=== PATIENT | female | born 1975 | race Caucasian/White ===

== ENCOUNTER → 2017-05-08 | Day surgery (SDC) | payer OTHER ==
[~2017-05-08] VITALS: Ht 165.1 cm; Wt 68.0 kg
[~2017-05-08] MED LIST: 0.9% Sodium Chloride 1,000 ML IV SCH; DICY10CA56 PO; IMI25 PO; METH500T7 PO; OMPR20CCR PO; RANI150C4 PO; Sodium Chloride LOK Flush 10 mL Syringe IV PRN; fentaNYL-PF 50 mCg/mL 2 mL Inj IVPUSH PRN
[2017-05-08 10:32] VITALS: BP 111/73; PULSE 82; RESP 16; O2SAT 98
[2017-05-08 11:42] VITALS: BP 96/70; PULSE 65; O2SAT 100
[2017-05-08 11:49] VITALS: BP 87/62; PULSE 54; RESP 14; O2SAT 100
--- NOTE | 2017-05-08 13:46 | ENDO ---
[address] [address] ENDOSCOPY PROCEDURE PATIENT: MILTON BECKHAM : 1975 MR#: [id number] ADMIT: 05/08/2017 JOB ID: [id number] DATE OF SERVICE: 05/08/2017 TYPE OF OPERATION: 1. Esophagogastroduodenoscopy with biopsy. 2. Colonoscopy with biopsy. PREOPERATIVE DIAGNOSIS(ES): 1. Gastroesophageal reflux disease. 2. Diarrhea. POSTOPERATIVE DIAGNOSIS(ES): 1. Mild nonerosive gastritis. 2. Normal colonoscopy, status post biopsy. ANESTHESIA: Fentanyl 50 mcg, Versed 4 mg IV administered. COMPLICATIONS: None. BLOOD LOSS: Minimal. DESCRIPTION OF PROCEDURE: After risks and benefits were explained to the patient, informed consent was obtained. After anesthesia administered, upper endoscope was then inserted into the mouth, intubating into the esophagus, stomach, second portion of duodenum. Mucosa carefully examined. After procedure was done, the scope withdrawn and procedure terminated. Colonoscope was then inserted from rectum to cecum and to the terminal ileum and mucosa carefully examined. Prep of the patient was excellent. After the procedure was done, the scope withdrawn and the procedure terminated. FINDINGS: Upon inspection of the esophagus, the esophagus was normal without masses, ulcers, or lesions seen. Z-line located at 40 cm from incisors. Upon entering the stomach, there was mild nonerosive gastritis that was seen. There were no masses, ulcers, or lesions that were seen. Retroflexion was normal. Duodenal bulb, first and second portion were normals. Biopsies taken of the duodenum, antrum, body and distal esophagus. Upon inspection of the anus, no masses, hemorrhoids, ulcers, or fissures that were seen. Throughout the entire examination, there were no polyps, masses, or lesions. Biopsies taken from the terminal ileum and random colon. Retroflexion was normal. IMPRESSION: 1. Normal colonoscopy, status post biopsy. 2. Mild nonerosive gastritis. RECOMMENDATION: Await pathology results. Follow up in GI clinic as needed.
--- NOTE | 2017-05-10 12:39 | PATH ---
SURGICAL PATHOLOGY Attending Physician:Maxx Thacker MD CASE STATUS: Signed Out PATIENT NAME: MILTON BECKHAM PID: [id number] : 1975 DATE COLLECTED:05/08/2017 19:55 SPECIMEN: 1: Duodenum, Biopsy 2: Stomach, Antrum, Biopsy 3: Gastric, Biopsy 4: Esophagus, Biopsy 5: Ileum, Biopsy 6: Colon, Biopsy CLINICAL HISTORY: 1). DUODENUM BIOPSY 2). ANTRUM BIOPSY 3). GASTRIC BODY BIOPSY, RULE OUT H.PYLORI 4). DISTAL ESOPHAGUS BIOPSY 5). TERMINAL ILEUM BIOPSY 6). RANDOM COLON BIOPSY FINAL DIAGNOSIS: 1. Duodenum, Biopsy: Duodenal mucosa with no diagnostic abnormality. Negative for active inflammation, features of sprue, dysplasia, and malignancy. 2. Gastric Antrum, Biopsy: Portions of gastric antral and body-type mucosa with mild chronic gastritis. No H. pylori organisms identified by H&E stain. Negative for intestinal metaplasia, dysplasia, and malignancy. 3. Gastric Body, Biopsy: Portions of gastric body-type mucosa with mild chronic gastritis. No H. pylori organisms identified by H&E stain or immunohistochemistry studies. Negative for intestinal metaplasia, dysplasia, and malignancy. 4. Distal Esophagus, Biopsy: Portion of inflamed columnar mucosa with no diagnostic abnormality. Detached portion of squamous mucosa with no diagnostic abnormality. Negative for intestinal metaplasia. Negative for dysplasia and malignancy. No well preserved, contiguous, squamocolumnar junctional tissue is identified. 5. Terminal Ileum, Biopsy: Portions of small bowel mucosa with no diagnostic abnormality. Negative for active inflammation, dysplasia and malignancy. 6. Colon, Random Biopsy: Superficial portions of colorectal mucosa with occasional lymphoid aggregates, possible melanosis coli, and no diagnostic abnormality. Negative for granulomas, active inflammation, dysplasia and malignancy. There is no evidence of microscopic colitis. ICD10: K29.7 GROSS DESCRIPTION: The specimen is received in six formalin filled containers labeled with the patient's name. 1). The specimen is labeled "duodenum" and consists of 2 portions of tissue which aggregate to 0.2 x 0.2 x 0.2 CM. The specimen is entirely submitted in cassette 1A. 2). The specimen is labeled "antrum" and consists of 2 portions of tissue which aggregate to 0.3 x 0.3 x 0.2 CM. The specimen is entirely submitted in cassette 2A. 3). The specimen is labeled "gastric body" and consists of 2 portions of tissue which aggregate to 0.4 x 0.3 x 0.2 CM. The specimen is entirely submitted in cassette 3A. 4). The specimen is labeled "distal esophagus" and consists of 2 portions of tissue which aggregate to 0.2 x 0.2 x 0.2 CM. The specimen is entirely submitted in cassette 4A. 5). The specimen is labeled "terminal ileum" and consists of 2 portions of tissue which aggregate to 0.3 x 0.3 x 0.2 CM. The specimen is entirely submitted in cassette 5A. 6). The specimen is labeled "random colon" and consists of multiple portions of tissue which aggregate to 0.3 x 0.3 x 0.3 CM. The specimen is entirely submitted in cassette 6A. 05/08/2017CO MICRO DESCRIPTION: IMMUNOHISTOCHEMISTRY: Block 3A: H. pylori: Negative * This test was developed and its performance characteristics determined by [facility]. It has not been cleared or approved by the U.S. Food and Drug Administration. The FDA has determined that such clearance or approval is not necessary. This test is used for clinical purposes. It should not be regarded as investigational or for research. ICD-9 CODES: CPT CODES: 1: 59365 2: 40731 3: 35227, 88422 4: 82576 5: 31460 6: 17645 Electronically Signed Out Lala Mosqueda MD [facility] Pathology [facility] [address] [facility], [place] [address] Technical component performed at [facility], [address], [place], [address]
== END | disposition home or self-care (01) ==
LOC: END 01:11
PROVIDERS: ATTEND Internal Medicine Gastroenterology
DX: K29.50 Unspecified chronic gastritis without bleeding (principal); K21.9 Gastro-esophageal reflux disease without esophagitis; R19.7 Diarrhea, unspecified; Z86.010 Personal history of colon polyps; Z79.899 Other long term (current) drug therapy; Z87.891 Personal history of nicotine dependence; Z91.048 Other nonmedicinal substance allergy status
CPT/HCPCS: 43239; 45380; 99153; G0500; J2250; J3010; J7030